=== PATIENT | female | born 1970 | race Asian ===

== ENCOUNTER 2019-09-07 10:52 | Day surgery (SDC) | payer OTHER ==
[~2019-09-07 10:52] MED LIST: BALANCED SALT IRRIG SOLN COMB2 15 ML BOTTLE ONE; BUPIVACAINE HCL 0.75% INJ/PF (7.5 MG/1 ML) 10 ML SDV ONE; HYALURONIDASE INJ 150 UNIT/1 ML VIAL ONE; LIDOCAINE 2% INJ-PF (20 MG/ML) 10 ML AMPUL ONE; POVIDONE-IODINE 5% OPH PREP SOLN 30 ML ONE; TOBRAMYCIN SULFATE/DEXAMETH OPH OINTMENT 3.5 GM ONE
[2019-09-07] MEDS ORDERED: TETRACAINE HCL 0.5% OPH SOLN 4 ML ONE (11:51)
[2019-09-07] MEDS ORDERED: RINGERS SOLUTION,LACTATED 500 ML IV PRN (11:54)
[2019-09-07] MEDS ORDERED: LIDOCAINE 0.5% INJ-PF (5 MG/ML) 50 ML SDV SUBCUT PRN (11:54)
[2019-09-07] MEDS: BESIFLOXACIN HCL 0.6% OPH SUSP 5 ML BOTTLE OD PRN ×3 (11:55→12:06)
[2019-09-07] MEDS: TETRACAINE HCL 0.5% OPH SOLN 4 ML OD PRN ×2 (11:55→12:10)
[2019-09-07] MEDS: CYCLOPENTOLATE 0.2%/PHENYLEPHRINE 1% OPH SOLN 2 ML OD PRN ×3 (11:56→12:06)
[2019-09-07] MEDS ORDERED: MIDAZOLAM 2 MG/2 ML INJ ONE (11:58)
[2019-09-07] MEDS ORDERED: PROPOFOL INJ 200 MG/20 ML VIAL IV ONE (13:33)
--- NOTE | 2019-09-08 07:48 | Operative Report ---
Operative Report-[facility] Operative Report: Date of surgery: 09/07/2019 Surgeon: Antonio Stanton MD Preoperative diagnosis: Double pterygium of the right eye Discharge diagnoses: Double pterygium of the right eye Procedure: Double pterygium excision of the right eye with use of amniotic membrane Blood loss: Less than 5 cc Complications: None Anesthesia: MAC with a retrobulbar block of 1% lidocaine 0.75% Marcaine with vitrase Description of operative report: This is a 49-year-old female who presented to the OR for removal of a double pterygium of the right eye. The patient had a pterygium growing on the nasal aspect and the temporal aspect of the eye. After informed consent the patient was prepped and draped in sterile fashion. Prior to this the retrobulbar block was performed. Attention was directed to the temporal pterygium where the tissue to be excised was marked. This area was then injected with the same mixture as a retrobulbar block using a 25-gauge needle. The pterygium was excised using Ame's and forceps removing the conjunctiva and the tenon's below to bare sclera. The corneal aspect of the trigeminal was then removed by peeling it off. A Columbia blade was used to then smooth the cornea. Cautery was used to achieve hemostasis. Next the area was measured with calipers to determine the size of the amniotic membrane. The amniotic membrane was trimmed to the appropriate size and placed on the scleral bed. This was then glued to the sclera with Tisseel and found to be in excellent position. The same exact procedure in the same order was then performed on the nasal pterygium as well. TobraDex ointment was then instilled into the eye and a pressure patch was taped. Patient woke up in postop recovery in stable condition. They are to leave the patch on for 24 hours then remove and start the drops as directed.
== END 2019-09-07 14:01 | disposition home or self-care (01) ==
LOC: SC 10:52
PROVIDERS: ATTEND Internal Medicine
DX: H11.031 Double pterygium of right eye (principal); H25.13 Age-related nuclear cataract, bilateral; F17.210 Nicotine dependence, cigarettes, uncomplicated; Z03.818 Encounter for observation for suspected exposure to other biological agents ruled out
CPT/HCPCS: 87635; 65426; J2250; J3490 ×6; J2704; J3470; C9803; 140; 88305; C9250